=== PATIENT | male | born 1975 | race Caucasian/White ===

== ENCOUNTER 2016-10-08 14:33 | Outpatient (CLI) | payer OTHER | END 2016-10-08 14:34 | disposition home or self-care (01) | DX: G47.8 Other sleep disorders (principal); R53.83 Other fatigue; R06.83 Snoring; G47.00 Insomnia, unspecified; R51 Headache ==

== ENCOUNTER 2016-10-28 19:23 | Outpatient (CLI) | payer OTHER | END 2016-10-28 19:24 | disposition home or self-care (01) | DX: G47.61 Periodic limb movement disorder (principal) ==

== ENCOUNTER 2016-11-12 14:00 | Outpatient (CLI) | payer OTHER | END 2016-11-12 14:01 | disposition home or self-care (01) | LOC: SC 14:00 | PROVIDERS: ATTEND Nurse Practitioner Family | DX: G47.61 Periodic limb movement disorder (principal); R06.83 Snoring; G47.00 Insomnia, unspecified | CPT/HCPCS: 99212; 99214 ==

== ENCOUNTER 2017-01-10 05:57 | Day surgery (SDC) | payer OTHER ==
[2017-01-10] MEDS ORDERED: ACETAMINOPHEN 1,000 MG/100 ML 100 ML IV ONE (06:22)
[2017-01-10] MEDS ORDERED: ceFAZolin 2 GM/50 ML 50 ML IV ONE (06:22)
[2017-01-10] MEDS ORDERED: CELECOXIB 100 MG CAPSULE PO ONE (06:22)
[2017-01-10] MEDS ORDERED: LACTATED RINGERS 1,000 ML IV ONE ×2 (06:46→09:28)
[2017-01-10] MEDS ORDERED: MORPHINE PF 5 MG/10 ML AMP SUBQ ONE ×2 (07:33)
[2017-01-10] MEDS ORDERED: ROPIVACAINE 0.2% PF 20 ML AMPULE SUBQ ONE (07:33)
[2017-01-10] MEDS ORDERED: BUPIVACAINE 0.5% PF 10 ML VIAL SUBQ ONE ×2 (07:33)
[2017-01-10] MEDS ORDERED: MIDAZOLAM 2 MG/2 ML VIAL IVP ONE (08:00)
[2017-01-10] MEDS ORDERED: PROPOFOL 200 MG/20 ML VIAL IVP ONE (08:00)
[2017-01-10] MEDS ORDERED: LIDOCAINE-MPF 2% 5 ML VIAL IM ONE (08:00)
[2017-01-10] MEDS ORDERED: DEXAMETHASONE 4 MG/ML VIAL IVP ONE (08:00)
[2017-01-10] MEDS ORDERED: fentaNYL 100 MCG/2 ML VIAL IVP ONE (08:00)
[2017-01-10] MEDS ORDERED: oxyCOD/ACETAMIN 5 MG/325 MG TABLET PO ONE ×2 (09:45→10:12)
[2017-01-10 11:22] VITALS: BP 136/86
--- NOTE | 2017-01-13 07:51 | OPERATIVE REPORT ---
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 OPERATIVE PROCEDURE PERFORMED: Left knee arthroscopy with medial femoral condyle chondroplasty, medial patella chondroplasty, and medial plica resection. OPERATIVE SURGEON: Commander Octavio Leong, Medical [facility] USN TEST PREPARER SURGEON: Lieutenant Commander Diana Coleman, Medical [facility], USN ANESTHESIA PROVIDER: Chelita Clayton CRNA ANESTHESIA TECHNIQUE: General anesthesia with LMA and local anesthesia at the portal sites. CIRCULATING NURSES: Sherif Street RN; Ms. Ursula Horne RN SCRUB TECHS: Ms. Alba Vega; Ms. Rich Crawley RN START TIME: 0816 hours. END TIME: 0854 hours. INJECTED SUBSTANCES INCLUDE: Marcaine 0.5% plain 10 mL injected into the portal sites prior to incision; additional injected substances include ropivacaine 0.2% 5 mL with 10 mg of Duramorph morphine injected intraarticularly after closure of portal sites for postoperative pain control. INTRAVENOUS FLUIDS: 900 mL of Lactated Ringer's PREOPERATIVE ANTIBIOTICS: Ancef 2 grams TOURNIQUET TIME: None. ESTIMATED BLOOD LOSS: 5 mL. PREOPERATIVE PREP: Hibiclens followed by ChloraPrep applied to the exposed operative skin after draping. Patient had a right lower extremity TRANG hose in place and foot pump in place, functioning prior to induction of anesthesia. COMPLICATIONS: None. 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 he had 2 subsequent knee arthroscopies performed with meniscus debridement without any relief of his symptoms. The patient's current clinical exam and imaging studies were consistent with, in my opinion, a left medial plica impingement and chondromalacia patellae. He was counseled as far as these findings, and options for operative versus nonoperative management including the risks, benefits, alternatives, and expectations to both operative and nonoperative management. He preferred to have surgery, received command authorization for surgery; on the day of surgery identified the operative site to be his left knee , and it was initialed by the operative surgeon. He had removal of hair with clippers performed. He was then taken back to the operating room and placed in the supine position, underwent general anesthesia via LMA, and received his preoperative antibiotics. After adequate anesthetic control, his left lower extremity underwent examination under anesthesia, revealing a full passive range of motion, stable anterior and posterior drawer, stable Isidro's, negative pivot shift or glide, stable varus and valgus stress at 0 and 30 degrees. He had a tourniquet placed on the left upper thigh. Following this, the patient underwent Hibiclens prep and standard sterile draping, followed by a surgical pause to confirm the proper patient, procedure, operative site, position, prophylactic antibiotics, surgical initials, and surgical instrumentation in accordance with the [place] Protocol Procedure Verification. Follow this, ChloraPrep was applied to the exposed operative skin and allowed to dry for 3 minutes. His bony landmarks were then outlined with a skin marker. The patient had previously marked his area of pain site in the holding area with a sterile skin marker. Surgery began with injecting of the portals with 0.5% Marcaine plain, followed by a stab incision over the anterolateral knee, insertion of the arthroscope into the medial compartment due to thick synovial tissue and fat pad restricting entrance into the patellofemoral articulation. Under direct visualization, a spinal needle was inserted to establish location of the anteromedial portal, followed by a stab incision and a probe. This revealed medial femoral condyle area of chondromalacia over the more lateral aspect of the condyle, just off the weightbearing surface which under wnet chondroplasty with the sucker shave to a stable rim. The medial meniscus was probed and visualized; there were no signs of tear or instability. The medial tibial plateau appeared normal. The knee was taken through a full range of motion, and there were no other further signs of medial femoral condyle chondromalacia. Ligamentum resection was performed in order to enter the femoral notch, probing and visualization of the ACL showed no signs of tear or insufficiency. Further synovial resection was performed in order to enter the patellofemoral articulation, revealing medial-sided chondromalacia and the medial plica and medial synovial tissue impingement. A spinal needle was inserted to the area the patient had marked as his pain site in the holding area, and this corresponded to this area of impingement. This underwent resection, as well as a medial patella chondroplasty with the sucker shaver and SERFAS wand for hemostasis. The patellofemoral articulation appeared normal, as did the central and lateral patellofemoral surface and the trochlea. Further attention was then focused in to the lateral compartment, in the figure- 4 position, a probe was inserted, revealing grade 1 area of lateral tibial plateau chondromalacia. Lateral meniscus appeared normal and stable without signs of tear or insufficiency. The knee was taken through a full range of motion, showing no signs of lateral femoral condyle chondromalacia. The instruments were then removed from the patient's knee. The fluid was allowed to extravasate out. The portal sites were then closed with 3-0 Monocryl. The knee was then injected with ropivacaine and Duramorph. The portal sites were then covered with Mastisol, Steri-Strips, Xeroform, sterile plain gauze, sterile Webril, and an EMILIANA bandage from mid-foot to mid-thigh followed by place of a cold therapy cuff. The patient was extubated in the operating room and taken to the recovery room in stable condition and tolerated the procedure well. His was notified by telephone of the intraoperative findings, procedures performed, and postoperative instructions. Edited and electronically signed: CDR Octavio Leong MC, USN [id number] JOB #: [id number] EXT JOB #:[id number] [id number]
== END 2017-01-10 05:58 | disposition home or self-care (01) ==
LOC: SDS 05:57
PROVIDERS: ATTEND Orthopaedic Surgery
PROC: 0SBD4ZZ Excision of Left Knee Joint, Percutaneous Endoscopic Approach (ICD-10-PCS; principal; 2017-01-10 07:30)
DX: M22.42 Chondromalacia patellae, left knee (principal); M67.52 Plica syndrome, left knee; M25.862 Other specified joint disorders, left knee; M94.262 Chondromalacia, left knee; F17.200 Nicotine dependence, unspecified, uncomplicated
CPT/HCPCS: 29877; A9270; J0131; J0690; J7120

== ENCOUNTER 2017-04-15 09:48 | Outpatient (CLI) | payer OTHER ==
--- NOTE | 2017-04-15 15:19 | MRI Report ---
EXAM: RIGHT KNEE MRI WITHOUT CONTRAST EXAM DATE: 04/15/2017 11:12 AM. CLINICAL HISTORY: Pain in right knee. COMPARISON: None. TECHNIQUE: Multiplanar, multisequence T1-weighted and fluid-sensitive sequences of the knee without c ontrast. Other: None. FINDINGS: Bones: Mild focal marrow edema at the posterior medial aspect of the lateral tibial plateau. Probable small bone island at the proximal tibia. No acute fracture. Normal marrow signal. Articular Cartilage: Small partial thickness articular cartilage fissure at the medial patellar facet . Focal grade 2 chondromalacia at the posterior aspect of the lateral tibial plateau. Medial Meniscus: The medial meniscus is intact. Lateral Meniscus: The lateral meniscus is intact. Cruciate Ligaments: The anterior and posterior cruciate ligaments are intact. Collateral Ligaments: The medial collateral and lateral collateral ligamentous structures are intact. Tendons: There is mild focal proximal patellar tendinosis. The quadriceps, semimembranosus, and popli teus tendons are unremarkable. Musculature: No edema or fatty atrophy. Other: No effusion. No popliteal cyst. No loose bodies. The medial and lateral retinacula are intact . The subcutaneous tissues and fat pads are unremarkable. IMPRESSION: 1. Small partial thickness articular cartilage fissure at the medial patellar facet. Focal grade 2 ch ondromalacia at the posterior aspect of the lateral tibial plateau. 2. No ligament or meniscal injury. 3. Mild proximal patellar tendinosis. [facility] MUSCULOSKELETAL RADIOLOGY SECTION Referring Provider Line: [phone] SITE ID: [id number]
== END 2017-04-15 09:49 | disposition home or self-care (01) ==
LOC: DI 09:48
PROVIDERS: ATTEND Pediatrics
DX: M23.91 Unspecified internal derangement of right knee (principal); M94.261 Chondromalacia, right knee